=== PATIENT | male | born 1990 | race Two or more races ===

== ENCOUNTER 2023-01-23 00:20 | Emergency (ER) | payer MEDICAID ==
[~2023-01-23] VITALS: Ht 170.2 cm; Wt 72.6 kg
[2023-01-23 01:06] VITALS: BP 108/74; TEMP 98.4
[2023-01-23] MEDS ORDERED: COLC0.6T67 PO (01:15)
[2023-01-23] MEDS ORDERED: IBUP-1957 PO (01:15)
[2023-01-23] MEDS ORDERED: COLCHICINE 0.6 MG TABLET PO ONE (01:30)
[2023-01-23] MEDS ORDERED: KETOROLAC TROMETHAMINE INJ 60 MG/2 ML VIAL IM ONE ×2 (01:30→01:34)
[2023-01-23] MEDS ORDERED: COLCHICINE 0.6 MG TABLET ONE (01:34)
[2023-01-23 01:47] VITALS: O2SAT 98
== END 2023-01-23 01:49 | disposition home or self-care (01) ==
LOC: ER 00:29
DX: M10.9 Gout, unspecified (principal)
CPT/HCPCS: 99283; 96372; J1885